=== PATIENT | female | born 1950 | race Caucasian/White ===

== ENCOUNTER 2020-07-05 06:32 | Day surgery (SDC) | payer MEDICARE, OTHER ==
[2020-06-27 15:38] VITALS: BMI 28.3
[2020-07-05] MEDS ORDERED: MIDAZOLAM HCL 2 MG/2 ML SINGLE DOSE VIAL ONE (08:55)
[2020-07-05] MEDS ORDERED: ROPIVACAINE HCL 0.5% 30ML VIAL ONE (08:55)
[2020-07-05] MEDS ORDERED: PROPOFOL 20 ML ONE ×2 (09:05→09:40)
[2020-07-05] MEDS ORDERED: ceFAZolin SODIUM 1 GM VIAL ONE ×2 (09:07→09:37)
[2020-07-05] MEDS ORDERED: ONDANSETRON 4 MG/2 ML VIAL ONE (09:37)
[2020-07-05] MEDS ORDERED: DEXAMETHASONE SOD PHOSPHATE 4 MG/1 ML VIAL ONE (09:37)
[2020-07-05 12:06] VITALS: TEMP 97.8
[2020-07-05 12:08] VITALS: BP 106/82; PULSE 60
[2020-07-05] MEDS ORDERED: ONDANSETRON 4 MG/2 ML VIAL IVPUSH PRN (13:39)
[2020-07-05] MEDS ORDERED: oxyCODONE HCL 5 MG TABLET PO PRN (13:39)
[2020-07-05] MEDS ORDERED: LACTATED RINGERS SOLUTION 1,000 ML IV SCH (13:45)
== END 2020-07-05 12:15 | disposition home or self-care (01) ==
LOC: FASU 06:32
PROVIDERS: ATTEND Orthopaedic Surgery
PROC: 0RBK4ZZ Excision of Left Shoulder Joint, Percutaneous Endoscopic Approach (ICD-10-PCS; 2020-07-05)
PROC: 0PBB4ZZ Excision of Left Clavicle, Percutaneous Endoscopic Approach (ICD-10-PCS; principal; 2020-07-05 09:50)
DX: M75.02 Adhesive capsulitis of left shoulder (principal); M75.42 Impingement syndrome of left shoulder; M19.012 Primary osteoarthritis, left shoulder; S43.432A Superior glenoid labrum lesion of left shoulder, initial encounter; X58.XXXA Exposure to other specified factors, initial encounter; Y93.9 Activity, unspecified; Y92.9 Unspecified place or not applicable; M65.812 Other synovitis and tenosynovitis, left shoulder
CPT/HCPCS: 88304-TC; 94760